=== PATIENT | male | born 1965 | race Caucasian/White ===

== ENCOUNTER 2024-07-09 15:16 | Inpatient (IN) ==
[2024-07-09 15:51] LABS: ABS Basophils 0.1 10^3/uL (0.0-0.1); ABS Eosinophils 0.3 10^3/uL (0.0-0.5); ABS Lymphocytes 2.4 10^3/uL (1.0-4.8); ABS Monocytes 0.8 10^3/uL (0.0-1.1); ABS Neutrophils 3.9 10^3/uL (1.5-7.6); ABS Nucleated RBC 0.01 10^3/ul; Eosinophil % 4.3 %; Hematocrit 45.3 % (38-53); Hemoglobin 15.7 g/dL (13.2-16.3); Lymphocyte % 31.9 %; Mean Corpuscular Hemoglobin 33.9 pg (27-33); Mean Corpuscular Hgb Conc 34.6 g/dL (31-36); Mean Corpuscular Volume 97.8 fL (80-97); Mean Platelet Volume 8.6 fL (7.5-11.2); Nucleated Red Blood Cells % 0.1 %/100WBC (0.0-0.8); Platelet Count 113 10^3/uL (150-450); Red Blood Count 4.63 10^6/uL (4.06-5.63); Red Cell Distribution Width 13.2 % (12-17); White Blood Count 7.5 10^3/uL (3.6-10.2)
[2024-07-09 16:00] LABS: INR 1.09 (0.85-1.14)
[2024-07-09 16:32] LABS: Albumin/Globulin Ratio 1.3 (1-3); Calcium 8.8 mg/dL (8.6-10.3); Creatinine, Serum 0.64 mg/dL (0.67-1.17); Globulin 3.2 g/dL (2-4); Potassium 3.6 mmol/L (3.5-5.0); Total Bilirubin 0.9 mg/dL (0.2-1.0); Total Protein 7.2 g/dL (6.4-8.9); eGFR CKD-EPI 108.4 (>60)
[2024-07-09 17:32] LABS: High Sensitivity Troponin 1 Hr 58 pg/mL (<20)
[2024-07-09] MEDS: Lactated Ringers 1000 ml BAG 1,000 ML IV SCH (17:46)
[2024-07-09 20:54] LABS: High Sensitivity Troponin 3 Hr 89 pg/mL (<20)
[2024-07-09] MEDS: Enoxaparin 40 MG/0.4 ML SYR SUBCUT SCH (21:44)
[2024-07-10] MEDS: Heparin DRIP 25,000 UNITS BAG 25,000 UNITS/250 ML BAG IV SCH ×2 (00:42→06:14)
[2024-07-10] MEDS: Heparin 5000 UNITS/ML 1 mL VIAL IV SCH (00:42)
[2024-07-10 06:35] LABS: INR 1.08 (0.85-1.14)
[2024-07-10 06:45] LABS: Calcium 8.6 mg/dL (8.6-10.3); Creatinine, Serum 0.54 mg/dL (0.67-1.17); HDL Cholesterol 31.5 mg/dL; eGFR CKD-EPI 114.1 (>60)
[2024-07-10] MEDS: Aspirin EC 81 mg TAB.EC (enteric coated) PO SCH (08:52)
[2024-07-10] MEDS: Sulfur Hexaflouride MICROSPHR 25 MG VIAL IV PRN (10:02)
[2024-07-10] MEDS: oxyCODONE/Acetamin 5/325 mg TAB PO PRN (10:28)
[2024-07-10 10:38] LABS: ABS Basophils 0.2 10^3/uL (0.0-0.1); ABS Eosinophils 0.5 10^3/uL (0.0-0.5); ABS Lymphocytes 3.7 10^3/uL (1.0-4.8); ABS Nucleated RBC 0.01 10^3/ul; Eosinophil % 4.5 %; Hematocrit 50.2 % (38-53); Hemoglobin 16.8 g/dL (13.2-16.3); Lymphocyte % 32.5 %; Mean Corpuscular Hemoglobin 32.8 pg (27-33); Mean Corpuscular Hgb Conc 33.4 g/dL (31-36); Mean Corpuscular Volume 98.1 fL (80-97); Mean Platelet Volume 9.1 fL (7.5-11.2); Nucleated Red Blood Cells % 0.1 %/100WBC (0.0-0.8); Platelet Count 172 10^3/uL (150-450); Red Blood Count 5.12 10^6/uL (4.06-5.63); Red Cell Distribution Width 13.5 % (12-17); White Blood Count 11.4 10^3/uL (3.6-10.2)
[2024-07-10 10:44] LABS: INR 1.14 (0.85-1.14)
[2024-07-10] MEDS ORDERED: Flumazenil 0.5 mg/5 ml 0.1 MG/ML 5 ml VIAL IV PRN (11:07)
[2024-07-10] MEDS ORDERED: Naloxone 0.4 mg VIAL 0.4 mg/ml 1 ml VIAL IV PUSH PRN (11:07)
[2024-07-10] MEDS ORDERED: Midazolam 5 mg/5 ml VIAL 1 mg/ml 5 ml VIAL (5 mg) ONE (11:30)
[2024-07-10] MEDS ORDERED: Lidocaine 1% MPF 5 ML VIAL ONE ×3 (11:31→12:30)
[2024-07-10] MEDS ORDERED: Heparin 2 UNITS/ML 1000 mls 3,000 ML IV ONE (11:31)
[2024-07-10] MEDS ORDERED: fentaNYL 100 mcg/2 ml 50 MCG/ML VIAL ONE ×3 (11:31→13:42)
[2024-07-10] MEDS ORDERED: nitroGLYCERIN DRIP 25,000 MCG/250 ML BTL ONE (11:31)
[2024-07-10] MEDS ORDERED: Iohexol 350 (CONTRAST) 200 ML MDV IV ONE (11:31)
[2024-07-10] MEDS ORDERED: Heparin 1,000 UNIT/ML 10 ml (10,000 UNITS) CATHLAB/DIALYSIS ONE ×2 (11:31→13:05)
[2024-07-10] MEDS ORDERED: Iohexol 350 (CONTRAST) 100 ML PAK IV ONE (11:31)
[2024-07-10] MEDS ORDERED: niCARdipine 0.1MG/ML IVPREMIX 20 MG/200 ML BAG IV ONE (11:32)
[2024-07-10 11:59] LABS: Calcium 8.8 mg/dL (8.6-10.3); Creatinine, Serum 0.54 mg/dL (0.67-1.17); eGFR CKD-EPI 114.1 (>60)
[2024-07-10] MEDS ORDERED: Heparin 2 UNITS/ML 1000 mls 1,000 ML IV ONE (12:55)
[2024-07-10] MEDS ORDERED: Ondansetron 4 mg VIAL 2 MG/ML 2 ml VIAL IV PRN (14:11)
[2024-07-10] MEDS: NS 0.9% 1000 ml BAG 1,000 ML IV SCH (14:50)
[2024-07-10] MEDS: Midazolam 10 mg/10 ml VIAL 1 mg/ml 10 ml VIAL (10 mg) IV SLOW PU ONE (14:59)
[2024-07-10] MEDS: fentaNYL 100 mcg/2 ml 50 MCG/ML VIAL IV SLOW PU ONE (14:59)
[2024-07-10] MEDS: hydrALAZINE 20 mg/ml 1 ML Vial IV IV SLOW PU ONE (18:02)
[2024-07-10] MEDS: Prochlorperazine 5 mg/ml 2 ml VIAL (10 mg) IV ONE (22:45)
[2024-07-10 23:29] LABS: Calcium 8.5 mg/dL (8.6-10.3); Creatinine, Serum 0.53 mg/dL (0.67-1.17); Magnesium 1.7 mg/dL (1.9-2.7); eGFR CKD-EPI 114.7 (>60)
[2024-07-10] MEDS: Magnesium Sulfate 2 gm BAG 2 GM/50 ML BAG IVPB ONE (23:45)
[2024-07-11 05:54] LABS: Albumin 4.3 g/dL (3.2-5.2); Albumin/Globulin Ratio 1.3 (1-3); Calcium 8.9 mg/dL (8.6-10.3); Creatinine, Serum 0.61 mg/dL (0.67-1.17); Globulin 3.4 g/dL (2-4); HDL Cholesterol 35.2 mg/dL; Magnesium 2.4 mg/dL (1.9-2.7); Potassium 4.3 mmol/L (3.5-5.0); Total Bilirubin 2.1 mg/dL (0.2-1.0); Total Protein 7.7 g/dL (6.4-8.9)
[2024-07-11 10:59] LABS: ABS Basophils 0.1 10^3/uL (0.0-0.1); ABS Lymphocytes 2.1 10^3/uL (1.0-4.8); ABS Monocytes 0.9 10^3/uL (0.0-1.1); ABS Neutrophils 8.4 10^3/uL (1.5-7.6); Eosinophil % 0.3 %; Hematocrit 44.1 % (38-53); Hemoglobin 15.1 g/dL (13.2-16.3); Lymphocyte % 18.5 %; Mean Corpuscular Hemoglobin 33.8 pg (27-33); Mean Corpuscular Hgb Conc 34.3 g/dL (31-36); Mean Corpuscular Volume 98.4 fL (80-97); Mean Platelet Volume 8.4 fL (7.5-11.2); Platelet Count 140 10^3/uL (150-450); Red Blood Count 4.48 10^6/uL (4.06-5.63); Red Cell Distribution Width 13.2 % (12-17); White Blood Count 11.5 10^3/uL (3.6-10.2)
[2024-07-11 11:24] LABS: Calcium 8.2 mg/dL (8.6-10.3); Creatinine, Serum 0.67 mg/dL (0.67-1.17); Potassium 4.1 mmol/L (3.5-5.0); eGFR CKD-EPI 106.9 (>60)
[2024-07-12 03:36] LABS: ABS Basophils 0.2 10^3/uL (0.0-0.1); ABS Eosinophils 0.4 10^3/uL (0.0-0.5); ABS Lymphocytes 2.8 10^3/uL (1.0-4.8); ABS Monocytes 1.2 10^3/uL (0.0-1.1); ABS Neutrophils 7.6 10^3/uL (1.5-7.6); Hematocrit 43.8 % (38-53); Hemoglobin 15.1 g/dL (13.2-16.3); Lymphocyte % 22.7 %; Mean Corpuscular Hemoglobin 33.8 pg (27-33); Mean Corpuscular Hgb Conc 34.4 g/dL (31-36); Mean Corpuscular Volume 98.3 fL (80-97); Mean Platelet Volume 8.5 fL (7.5-11.2); Platelet Count 142 10^3/uL (150-450); Red Blood Count 4.46 10^6/uL (4.06-5.63); Red Cell Distribution Width 13.4 % (12-17); White Blood Count 12.1 10^3/uL (3.6-10.2)
[2024-07-12 04:31] LABS: Calcium 8.6 mg/dL (8.6-10.3); Creatinine, Serum 0.69 mg/dL (0.67-1.17); Magnesium 2.5 mg/dL (1.9-2.7); Potassium 3.9 mmol/L (3.5-5.0); eGFR CKD-EPI 105.9 (>60)
[2024-07-12] MEDS: Empagliflozin 25 MG TAB PO SCH (08:51)
[2024-07-12 13:26] VITALS: BP 139/81
== END 2024-07-12 13:30 | disposition home or self-care (01) | DRG 174 ==
LOC: ED 15:16 → EDHOLD 15:16 → SUATTDRO 20:54 → ICU 07-10 08:30 → AA 07-10 10:26 → ICU 07-10 14:33
PROVIDERS: ADMIT Student in an Organized Health Care Education/Training Program; ATTEND Hospitalist